=== PATIENT | male | born 1955 | race Hispanic/Latino ===

== ENCOUNTER 2018-06-10 14:09 | Emergency (ER) | payer MEDICARE, OTHER ==
[2018-06-10] MEDS ORDERED: HYDRALAZINE HCL 20 MG/ML VIAL ONE (14:43)
[2018-06-10] MEDS ORDERED: DIAZEPAM 5 MG TABLET ONE (14:43)
[2018-06-10 14:54] LABS: BASOPHILS % (AUTO) 0.5 % (0.0-5.0); EOSINOPHILS % (AUTO) 1.2 % (0.0-8.0); HEMATOCRIT 44.4 % (42-54); LYMPHOCYTES % (AUTO) 10.3 % (21.0-51.0); MEAN CORPUSCULAR HEMOGLOBIN 32.6 pg (27.0-33.0); MEAN CORPUSCULAR HGB CONC 34.6 g/dL (32.0-36.0); MEAN CORPUSCULAR VOLUME 94.3 fL (79-99); MONOCYTES % (AUTO) 4.2 % (3.0-13.0); NEUTROPHILS % (AUTO) 83.8 % (40.0-77.0); PLATELET COUNT (AUTO) 373 K/uL (130-400); RED BLOOD CELL COUNT(AUTO) 4.71 MIL/uL (4.50-6.20); RED CELL DISTRIBUTION WIDTH 13.4 % (11.0-15.5); WHITE BLOOD COUNT (AUTO) 8.1 K/uL (4.8-10.8)
[2018-06-10 15:07] LABS: CREATININE 1.1 mg/dL (0.5-1.5); POTASSIUM 3.4 mmol/L (3.5-5.1)
[2018-06-10 15:09] LABS: ALCOHOL, BLOOD < 3 mg/dL (0-10); AMMONIA 12 umol/L (11-32)
[2018-06-10 15:10] LABS: INR 0.95 (0.85-1.15); PARTIAL THROMBOPLASTIN TIME 28.1 SEC (26.3-35.5)
[2018-06-10 15:18] LABS: ALBUMIN 4.6 g/dL (3.5-5.0); BILIRUBIN,TOTAL 1.4 mg/dL (0.2-1.0); TOTAL PROTEIN, SERUM 8.4 g/dL (6.0-8.3)
[2018-06-10 15:34] LABS: B-TYPE NATRIURETIC PEPTIDE 136 pg/mL (0-100)
[2018-06-10] MEDS ORDERED: NITROGLYCERIN 1GM/1 INCH PACKET TD ONE (16:12)
[2018-06-10] MEDS ORDERED: ASPIRIN 325 MG TABLET ONE (17:36)
[2018-06-10] MEDS ORDERED: THIAMINE HCL 100 MG/ML 2ML VIAL ONE (18:27)
[2018-06-10] MEDS ORDERED: SODIUM CHLORIDE 0.9% 100 ML IV ONE (18:28)
[2018-06-10] MEDS ORDERED: IOHEXOL-350 75 ML VIAL IV ONE (22:50)
== END 2018-06-11 06:01 | disposition short-term general hospital (02) ==
LOC: EDH 14:09
DX: R27.0 Ataxia, unspecified (principal); R11.10 Vomiting, unspecified; I10 Essential (primary) hypertension; Z72.0 Tobacco use
CPT/HCPCS: 36415; 70450; 70496; 70498; 71045; 80053; 82140; 82550; 83874; 83880; 84484 ×3; 85025; 85610; 85730; 93005 ×2; 96365; 96375; 99285; G0480 ×2; J0360; J3411; Q9967

== ENCOUNTER → 2018-07-12 | Outpatient (CLI) | payer MEDICARE | END | disposition home or self-care (01) | LOC: RAH 09:16 | PROVIDERS: ATTEND Nurse Practitioner Adult Health | DX: R09.89 Other specified symptoms and signs involving the circulatory and respiratory systems (principal) | CPT/HCPCS: 93880 ==